=== PATIENT | female | born 1980 | race Caucasian/White ===

== ENCOUNTER → 2020-06-08 12:46 | Outpatient (BNVA) | payer MEDICARE, MEDICAID, SELFPAY | PROVIDERS: PCP Nurse Practitioner; Referring Provider Nurse Practitioner; Visit Provider Nurse Practitioner Gerontology | DX: Q61.5 Medullary cystic kidney (principal); R39.15 Urgency of urination; N20.0 Calculus of kidney; R10.31 Right lower quadrant pain | CPT/HCPCS: 81003; 99203 ==

== ENCOUNTER 2020-06-16 04:16 | Outpatient (CLI) | payer MEDICARE, MEDICAID, SELFPAY ==
--- NOTE | 2020-06-16 07:15 | DI.CT_ITS ---
EXAM: CT ABDOMEN PELVIS WO/W CLINICAL HISTORY: flank pain with microhemATURIA,MEDULLARY SPONGE KIDNEY TECHNIQUE: Imaging Protocol: Axial computed tomography images with coronal and sagittal reformatted images were created and reviewed CONTRAST MATERIAL: Intravenous: Omnipaque 350 Contrast volume:100 mL Oral: No COMPARISON: CT CT ABD PELVIS W/O from 03/25/2016 FINDINGS: ABDOMEN: Lung Bases: Normal where visualized. Liver: Normal density. No measurable mass. Portal, Superior Mesenteric, and Splenic Veins: Unremarkable. Gallbladder and Biliary Tract: No radiodense calculus or dilation. Pancreas: Normal density, no abnormal calcifications or inflammatory process. Spleen: Normal. Adrenals: No masses seen. Kidneys: Normal size, contour and axis. Bilateral nephrolithiasis. No masses seen. Abdominal Aorta: Abdominal portion non-dilated. Bowel: No obstruction or bowel wall thickening. Appendix is unremarkable. Peritoneal Cavity: Trace amount of free fluid in the pelvis. Lymph Nodes: Within normal limits. Bones: Mild degenerative changes. Soft Tissues: Unremarkable. PELVIS: Bladder: Symmetric distention, no gross wall thickening. Reproductive Organs: Unremarkable as visualized. Lymph Nodes: Within normal limits. Bones: Mild degenerative changes. IMPRESSION: Bilateral nephrolithiasis. No evidence of hydronephrosis. RADIATION DOSE DELIVERED: 2,343.99mGy.cm Total DLP 2,343.99mGy.cm Total DLP DATA REPOSITORY: All CT scans at this facility are submitted to the National Radiology Data Registry (NRDR) Dose Index Registry (DIR) with the [employer] ([employer]). RADIATION OPTIMIZATION: All CT scans at this facility use at least one of these dose optimization te chniques: automated exposure control; mA and/or kV adjustment per patient size (includes targeted exa ms where dose is matched to clinical indication); or iterative reconstruction.
[2020-06-16] MEDS: Omnipaque 350 MG/ML 100 ML BTL IJ (11:33)
[2020-06-16] MEDS: Normal Saline - Diluent 50 ML VIAL IV (11:45)
== END 2020-06-16 04:36 ==
PROVIDERS: PCP Nurse Practitioner; Visit Provider Nurse Practitioner Gerontology
DX: N20.0 Calculus of kidney (principal); R31.29 Other microscopic hematuria; Q61.5 Medullary cystic kidney
CPT/HCPCS: 74178; J3490

== ENCOUNTER → 2020-06-20 10:32 | Outpatient (BNVA) | payer MEDICARE, MEDICAID, SELFPAY | PROVIDERS: PCP Nurse Practitioner; Referring Provider Nurse Practitioner; Visit Provider Nurse Practitioner Gerontology | DX: N20.0 Calculus of kidney (principal) | CPT/HCPCS: 99213 ==

== ENCOUNTER → 2020-08-10 08:35 | Outpatient (BNVA) | payer MEDICARE, MEDICAID, SELFPAY | PROVIDERS: PCP Nurse Practitioner; Referring Provider Nurse Practitioner; Visit Provider Nurse Practitioner Gerontology | DX: N20.0 Calculus of kidney (principal) | CPT/HCPCS: 99213; 99441 ==

== ENCOUNTER 2020-09-08 04:06 | Outpatient (CLI) | payer MEDICARE, MEDICAID, SELFPAY ==
--- NOTE | 2020-09-08 06:53 | DI.US_ITS ---
EXAM: US RENAL CLINICAL HISTORY: monitoring stones,KIDNEY STONES,N20.0. TECHNIQUE: Lara scale, color and spectral Doppler were used. COMPARISON: CT CT ABDOMEN PELVIS WO/W from 06/16/[address] ABDOMEN PELVIS WO/W from 06/16/2020 FINDINGS: Renal size in cm: Right: 11.2. Left: 12.7. Echogenicity: Normal. Hydronephrosis: No. Cyst or mass: No. Nephrolithiasis: 0.6 cm echogenic focus in the lower pole of the left kidney suggestive a nonobstruct ing stone. Other findings: None. Bladder:Normal. Ureteral jets: Right: Visualized and unremarkable. Left: Visualized and unremarkable. Prevoid vol:51 cc Postvoid vol:0 cc Renal color flow: Symmetric and within normal limits. IMPRESSION: Left nephrolithiasis. No hydronephrosis. DATA REPOSITORY: .
== END 2020-09-08 04:26 ==
PROVIDERS: PCP Nurse Practitioner; Visit Provider Nurse Practitioner Gerontology
DX: N20.0 Calculus of kidney (principal)
CPT/HCPCS: 76770

== ENCOUNTER 2020-09-18 02:04 | Outpatient (CLI) | payer MEDICARE, MEDICAID, SELFPAY ==
[2020-09-19 12:36] LABS: COVID-19 RT-PCR UVMMC Result Negative (Negative)
== END 2020-09-18 02:24 ==
PROVIDERS: PCP Nurse Practitioner; Visit Provider Urology
DX: Z11.52 Encounter for screening for COVID-19 (principal)
CPT/HCPCS: U0003

== ENCOUNTER 2020-09-21 09:08 | Day surgery (SDC) | payer MEDICARE, MEDICAID, SELFPAY ==
[2020-09-21 09:15] VITALS: BP 128/83; PULSE 116; RESP 22; TEMP 36.6; O2SAT 96
== END 2020-09-21 09:28 ==
PROVIDERS: PCP Nurse Practitioner; Visit Provider Urology
DX: Z53.9 Procedure and treatment not carried out, unspecified reason (principal)

== ENCOUNTER 2020-09-25 04:27 | Outpatient (CLI) | payer MEDICARE, MEDICAID, SELFPAY ==
[2020-09-26 14:37] LABS: COVID-19 RT-PCR UVMMC Result Negative (Negative)
== END 2020-09-25 04:47 ==
PROVIDERS: PCP Nurse Practitioner; Visit Provider Urology
DX: Z11.52 Encounter for screening for COVID-19 (principal)
CPT/HCPCS: U0003

== ENCOUNTER 2020-09-28 06:20 | Day surgery (SDC) | payer MEDICARE, MEDICAID, SELFPAY ==
[2020-09-28 06:25] VITALS: BP 124/91; PULSE 100; RESP 18; TEMP 36.8; O2SAT 95
--- NOTE | 2020-09-28 06:44 | W.PM.HP.N ---
Date of service: 09/28/20 Time of Service: 06:44 Assessment and Plan Assessment and plan (1) Medullary sponge kidney: Status: Acute Assessment and plan: We will do cystoscopy and bilateral retrograde pyelogram. As long as no stone is documented on the right, we will proceed with a left-sided flexible ureteroscopy and possible holmium laser lithotripsy of her stones. (2) Kidney stones: Status: Chronic (3) Chronic pain disorder: Status: Acute History of Present Illness History of Present Illness Chief Complaint: Left renal Stones Narrative: This is a 39-year-old woman who has a history of medullary sponge kidney. She previously underwent bilateral flexible ureteroscopy with stone extraction at our facility in 2016. She has chronic pain issues and has been complaining of a change in her chronic bilateral flank pain. She was evaluated with a CT scan and renal ultrasound. The CT demonstrated nonobstructing left kidney stones. Ultrasound confirmed the absence of hydronephrosis. She presents for ureteroscopy with stone manipulation. Review of Systems Narrative: No fevers or chills No vision change or dysphasia No diabetes or thyroid No shortness of breath, cough or hemoptysis No chest pain or palpitations No nausea, vomiting, hepatitis, ulcers, jaundice, diarrhea or constipation No seizures, strokes or peripheral neuropathy No bleeding disorders or anemia No gout or arthralgia [facility] Medical History Asthma Chronic fatigue syndrome Controlled substance agreement broken Depression Fibromyalgia GERD (gastroesophageal reflux disease) Irritable bowel syndrome Migraines Nephrolithiasis Ovarian cyst PTSD (post-traumatic stress disorder) Surgical History H/O discectomy History of hysterectomy History of lithotripsy Status post laser lithotripsy of ureteral calculus Social History Smoking/Tobacco Use Status: Former Tobacco Use Quit Date: 09/01/18 Smoking risk assessment performed?: Yes Alcohol Intake: never Drug use: Daily Substance use type: marijuana Do you feel safe at home: Yes Do you feel safe in your relationship?: Yes Meds Home Medications and Allergies Home Medications Medication Instructions Recorded Confirmed Type albuterol sulfate [Proair Hfa] 8.5 g INHALATION PRN PRN inhaler 04/05/16 09/28/20 History omeprazole 40 mg capsule,delayed 40 mg PO DAILY 05/22/20 09/28/20 History release potassium citrate 10 mEq (1,080 10 meq PO TID 05/22/20 09/28/20 History mg) tablet,extended release quetiapine 300 mg tablet 600 mg PO HS tab 05/22/20 09/28/20 History tizanidine 4 mg capsule 4 mg PO TID PRN 05/22/20 09/28/20 History venlafaxine 150 mg 150 mg PO DAILY 05/22/20 09/28/20 History capsule,extended release 24 hr clonazepam 0.5 mg PO PRN PRN 09/27/20 09/28/20 History Allergies Allergy/AdvReac Type Severity Reaction Status Date / Time naproxen [From Naprosyn] Allergy Severe GI Bleeding Unverified 09/28/20 06:32 citalopram Allergy unknown Unverified 09/28/20 06:32 rizatriptan benzoate Allergy unknown Unverified 09/28/20 06:32 [From Maxalt] sertraline Allergy unknown Unverified 09/28/20 06:32 tapentadol HCl [From Nucynta] Allergy unknown Unverified 09/28/20 06:32 tramadol Allergy unknown Unverified 09/28/20 06:32 bupropion HCl AdvReac Severe makes me Unverified 09/28/20 06:32 [From Wellbutrin] manic carbamazepine AdvReac Intermediate low bp Unverified 09/28/20 06:32 Exam Const General: cooperative and anxious Neck Neck: supple Resp Effort & Inspection: normal respiratory effort Auscultation: clear to auscultation bilaterally Cardio Rate: regular rate Rhythm: regular rhythm GI Palpation: soft and no masses Neuro General: patient alert, patient awake and patient oriented x3 Results Last Vital Signs Temp 36.8 C 09/28/20 06:25 Pulse 100 H 09/28/20 06:25 Resp 18 09/28/20 06:25 BP 124/91 H 09/28/20 06:25 Pulse Ox 95 09/28/20 06:25 COVID-19 Screening Have you, or household traveled for leisure in last 14 days?: No Had IN PERSON contact w/suspected or confirmed C-19 person: No
[2020-09-28] MEDS: Lactated Ringers 1,000 ML 80 ML IV (06:52)
[2020-09-28] MEDS: ceFAZolin 1 GM/50 ML BAG IVPB (07:51)
[2020-09-28] MEDS: Lidocaine 2% Jelly 6 ML SYR (07:56)
[2020-09-28] MEDS: Omnipaque 300 MG/ML 50 ML BTL (08:14)
--- NOTE | 2020-09-28 08:20 | DI.RAD_ITS ---
EXAM: XR RETROGRADE IN OR CLINICAL HISTORY: left renal stones. TECHNIQUE: 2D digital imaging was performed. COMPARISON: No exams were available for comparison FINDINGS: Crust provided during urologic procedure bilateral retrograde injections evident. Images reveal a wi re extending up the left ureter to the renal pelvis level. There is no hydronephrosis nor hydrourete r evident on either side. Total fluoroscopy time 40.8 seconds; cumulative dose 7.48 mGy IMPRESSION: DATA REPOSITORY: RADIATION DOSE DELIVERED:
--- NOTE | 2020-09-28 08:22 | W.PM.DSUDISC ---
Discharge Plan Disposition Patient Disposition: HOME Condition: Stable Discharge Details Attending Provider: Kedar Foster Primary Care Provider: Chris Iniguez Home Meds and New Rx's Prescriptions: New ketorolac 10 mg tablet 10 mg PO Q6H PRN5 Days Qty: 20 RF: 0 oxycodone 5 mg capsule 5 mg PO Q6H PRN (Reason: pain) Qty: 10 RF: 0 No Action albuterol sulfate [ProAir HFA] 8.5 GM HFA aerosol inhaler 8.5 g Inhalation PRN PRNRF: 0 potassium citrate [Urocit-K 10] 10 mEq (1,080 mg) tablet extended release 10 meq PO TID RF: 0 tizanidine 4 mg capsule 4 mg PO TID PRNRF: 0 venlafaxine 150 mg capsule,extended release 24hr 150 mg PO DAILY RF: 0 quetiapine [Seroquel] 300 mg tablet 600 mg PO HS RF: 0 omeprazole 40 mg capsule,delayed release(DR/EC) 40 mg PO DAILY RF: 0 clonazepam 0.5 mg tablet 0.5 mg PO PRN PRNRF: 0 Discharge Instructions Additional Instructions: no need to strain urine Followup 4 to 6 weeks with renal ultrasound on same day Activity:: Activity as Tolerated Shower/Bathe:: 24 hours Diet:: As Tolerated Discharge Orders Discharge Orders: Discharge Order (Routine); Ordered 09/28/20 Ordered By: Kedar Foster DS: Diagnosis Discharge Diagnosis (1) Medullary sponge kidney: Status: Acute (2) Kidney stones: Status: Chronic (3) Chronic pain disorder: Status: Acute
[2020-09-28 08:25] VITALS: BP 111/76; PULSE 67; RESP 11; TEMP 35.3; O2SAT 99
[2020-09-28 08:30] VITALS: BP 93/70; PULSE 69; RESP 11; TEMP 35.3; O2SAT 99
[2020-09-28 08:35] VITALS: BP 100/68; PULSE 93; RESP 13; TEMP 35.3; O2SAT 99
[2020-09-28] MEDS: Phenazopyridine 200 MG TAB PO (08:55)
--- NOTE | 2020-09-28 08:56 | W.PM.OP ---
Date of service: 09/28/20 Time of Service: 08:57 Operative Note Operative Note DATE OF PROCEDURE: 09/28/20 PRE-OP DIAGNOSIS: Left kidney stones POST-OP DIAGNOSIS: same PROCEDURE: Cystoscopy, bilateral retrograde pyelogram, left flexible ureteroscopy with extraction of multiple stones. SURGEON: Kedar Foster ANESTHESIA: other (General without intubation) ESTIMATED BLOOD LOSS: 3 PATHOLOGY: other (stone for chemical analysis) COMPLICATIONS: None Patient was transported to: PACU Patient's condition: stable Indications: This is a 39-year-old woman who has a history of medullary sponge kidney. She has had multiple kidney stones treated with ESWL or ureteroscopy in the past. She currently has left-sided nonobstructing stones based on CT and ultrasound. She is having some right flank discomfort as well. She presents for cystoscopy with bilateral retrograde pyelograms and possible ureteroscopy. Findings: Total of 3 stones in the left kidney Normal-appearing right retrograde pyelogram Procedure Description: The patient was brought to the operating room on 09/28/2020. After successful induction of general anesthesia, she is placed in the dorsal lithotomy position. Her genitalia is prepped and draped. She was given preoperative IV antibiotics. 2% Xylocaine jelly was instilled into the urethra to act as a local anesthetic. A 22 [place] rigid cystoscope was passed through the urethra into the bladder. The bladder was inspected with a 30 degree lens. Both ureteral orifices were identified. They appeared normal in configuration and location. No blood was seen coming from either side. Each ureteral orifice was cannulated using a 6 [place] access catheter. Retrograde films were obtained by injecting Omnipaque through the access catheter under fluoroscopic guidance. The right ureter and collecting system appeared normal. The right side drained promptly with no delay. No filling defects were identified. On the left side, filling defects were seen in the lower pole calyx. This finding corresponds to the CT scan findings. A Glidewire was advanced up the left ureter and the scope and access catheter were removed. A dual-lumen catheter was then advanced over the wire and a second wire was positioned. We chose one of the wires as a working wire and the other is a safety wire. The ureteral access sheath was advanced over the working wire. The wire was then removed. The flexible ureteroscope was advanced through the ureteral access sheath. Each of the calyces was inspected based on the retrograde pyelogram mapping. The stone was seen in the one of the left midpole calyces the stone was grasped in a ZeroTip stone basket and removed. 2 additional stones were seen in one of the lower pole calyces. Again, each of these stones were grasped in a ZeroTip stone basket and removed. No additional stones were seen. I saw no evidence of ureteral injury, so we elected not to place a ureteral stent. All 3 stones were sent to pathology for chemical analysis. She tolerated this procedure well with no complications. She was sent to the recovery room in stable condition.
[2020-10-03 13:30] LABS: Source: Left Kidney
== END 2020-09-28 09:57 | disposition home or self-care (01) ==
PROVIDERS: PCP Nurse Practitioner; Visit Provider Urology
PROC: (CPT 52352; principal; 2020-09-28 07:30)
DX: N20.0 Calculus of kidney (principal); Q61.5 Medullary cystic kidney; Z87.442 Personal history of urinary calculi; K21.9 Gastro-esophageal reflux disease without esophagitis
CPT/HCPCS: 52352; NC; 74420; 82365; J0690; J1100; J1885; J2001; J2405; J2704; Q9967

== ENCOUNTER 2021-01-01 01:07 | Outpatient (CLI) | payer MEDICARE, MEDICAID, SELFPAY ==
--- NOTE | 2021-01-01 | DI.US_ITS ---
Exam(s) US RENAL EXAM: US RENAL CLINICAL HISTORY: ? HYDRONEPHROSIS AFTER URETEROSCOPY,KIDNEY STONES,N20.0. TECHNIQUE: Lara scale, color and spectral Doppler were used. COMPARISON: US US RENAL from 09/08/2020 FINDINGS: Renal size in cm: Right: 9.4. Left: 10.5. Echogenicity: Normal. Hydronephrosis: No. Cyst or mass: No. Nephrolithiasis: There is a 4.3 mm echogenic focus in the lower pole of the left kidney suspicious fo r nonobstructing stone. Other findings: None. Bladder:The bladder is incompletely distended limiting evaluation. Ureteral jets: Right: Visualized and unremarkable. Left: Visualized and unremarkable. Prevoid vol:49 cc Postvoid vol:0 cc Renal color flow: Symmetric and within normal limits. IMPRESSION: 1. No evidence of hydronephrosis. 2. Left nephrolithiasis. DATA REPOSITORY:
== END 2021-01-01 01:27 ==
PROVIDERS: PCP Nurse Practitioner; Visit Provider Urology
DX: N20.0 Calculus of kidney (principal); Q61.5 Medullary cystic kidney; Z87.440 Personal history of urinary (tract) infections
CPT/HCPCS: 76770; 99213; 99214

== ENCOUNTER 2021-07-09 00:23 | Outpatient (CLI) | payer MEDICARE, MEDICAID, SELFPAY ==
--- NOTE | 2021-07-09 06:45 | DI.US_ITS ---
Exam(s) US RENAL EXAM: US RENAL CLINICAL HISTORY: monitor known stones,medullary sponge kidney,calculus of kidney. TECHNIQUE: Lara scale, color and spectral Doppler were used. COMPARISON: US US RENAL from 01/01/2021 FINDINGS: Renal size in cm: Right: 10.4. Left: 11.2. Echogenicity: Normal. Hydronephrosis: No. Cyst or mass: No. Nephrolithiasis: 4 mm nonobstructing stone in the inferior pole. Other findings: None. Bladder:Normal. Ureteral jets: Right: Visualized and unremarkable. Left: Visualized and unremarkable. Prevoid vol:74 cc Postvoid vol:The patient did not feel the need to void. Renal color flow: Symmetric and within normal limits. IMPRESSION: Left nephrolithiasis. No hydronephrosis. DATA REPOSITORY:
== END 2021-07-09 00:43 ==
PROVIDERS: PCP Nurse Practitioner; Visit Provider Urology
DX: N20.0 Calculus of kidney (principal); Q61.5 Medullary cystic kidney
CPT/HCPCS: 76770

== ENCOUNTER 2022-08-21 00:54 | Outpatient (CLI) | payer MEDICARE, MEDICAID, SELFPAY ==
--- NOTE | 2022-08-21 06:30 | DI.US_ITS ---
Exam(s) US RENAL EXAM: US RENAL CLINICAL HISTORY: kidney stones,N20.0 TECHNIQUE: Ultrasound of both kidneys performed using standard protocol. COMPARISON: US US RENAL from 07/09/2021 FINDINGS: RIGHT KIDNEY: Measures 10.1 cm in length. No cysts evident. Normal cortical thickness and corticomedullary differen tiation .No solid masses No intrarenal calculi nor hydronephrosis. LEFT KIDNEY: Measures 11.5 cm in length. No cysts evident. Normal cortical thickness and corticomedullary differe ntiaion. No solids masses. There is a small hyperechoic focus towards the lower pole which may be a nonobstructive calculus measuring approximately 5 millimeters. URINARY BLADDER: Prevoid volume is 318 cc Postvoid volume is 0 cc No evidence of bladder mass nor diverticuli. Ureterovesical jets: The ureterovesical jet was identified. The right was not identified. IMPRESSION: 1. No significant ultrasound findings in the right kidney. 2. 5 millimeter hyperechoic focus in the left kidney which is probably a nonobstructive calculus. N o hydronephrosis. 3. No obvious focal findings in the urinary bladder. However, the right ureterovesical jet was not identified. There is, however, no hydronephrosis on the right side. DATA REPOSITORY:
== END 2022-08-21 01:14 ==
LOC: DI 00:55
PROVIDERS: PCP Nurse Practitioner; Visit Provider Urology
DX: N20.0 Calculus of kidney (principal)
CPT/HCPCS: 76770; 99214

== ENCOUNTER 2023-02-19 01:37 | Outpatient (CLI) | payer OTHER, MEDICAID, SELFPAY ==
--- NOTE | 2023-02-19 07:15 | DI.US_ITS ---
Exam(s) US RENAL EXAM: US RENAL CLINICAL HISTORY: monitoring stone burden, MEDULLARY SPONGE KIDNEY, Q61.5, N20.0. TECHNIQUE: Lara scale, color and spectral Doppler were used. COMPARISON: US US RENAL from 08/21/2022 FINDINGS: Renal size in cm: Right: 9.9. Left: 11.1. Echogenicity: Normal. Hydronephrosis: No. Cyst or mass: No. Nephrolithiasis: There is a 7 mm echogenic focus in the inferior pole of the left kidney which may re present a nonobstructing stone. Other findings: None. Bladder:Normal. Ureteral jets: Right: Visualized and unremarkable. Left: Visualized and unremarkable. Prevoid vol:77 cc Postvoid vol:5 cc Renal color flow: Symmetric and within normal limits. IMPRESSION: Left nephrolithiasis. No hydronephrosis. DATA REPOSITORY:
== END 2023-02-19 01:57 ==
LOC: DI 01:38
PROVIDERS: PCP Nurse Practitioner; Visit Provider Nurse Practitioner Gerontology
DX: N20.0 Calculus of kidney (principal); Q61.5 Medullary cystic kidney
CPT/HCPCS: 76770

== ENCOUNTER → 2023-06-19 13:55 | Outpatient (BNVA) | payer OTHER, MEDICAID, SELFPAY | PROVIDERS: PCP Nurse Practitioner; Referring Provider Nurse Practitioner; Visit Provider Nurse Practitioner Gerontology | DX: Q61.5 Medullary cystic kidney (principal); N20.0 Calculus of kidney; Z87.440 Personal history of urinary (tract) infections | CPT/HCPCS: 81003; 99213 ==

== ENCOUNTER → 2023-08-27 00:51 | Outpatient (CLI) | payer OTHER, MEDICAID, SELFPAY ==
--- NOTE | 2023-08-27 07:00 | DI.US_ITS ---
Exam(s) US RENAL EXAM: US RENAL CLINICAL HISTORY: monitoring left renal calculi,KIDNEY STONES,MEDULLARY KIDNEY,N20.0,q61.5. TECHNIQUE: Lara scale, color and spectral Doppler were used. COMPARISON: CT CT ABDOMEN PELVIS WO/W from 06/16/2020 US US RENAL from 08/21/2022 US US RENAL from 02/19/2023 FINDINGS: Renal size in cm: Right: 10.3 left: 11.5 Echogenicity: Normal Hydronephrosis: No Cyst or mass: No Nephrolithiasis: 5 millimeter stone mid left kidney. 7 millimeter stone lower pole left kidney. No right renal calculi. Bladder:Normal. Prevoid vol: 150 cc Postvoid vol:0 cc IMPRESSION: Left nephrolithiasis. DATA REPOSITORY:
== END ==
PROVIDERS: PCP Nurse Practitioner; Visit Provider Nurse Practitioner Gerontology
DX: N20.0 Calculus of kidney (principal); Q61.5 Medullary cystic kidney
CPT/HCPCS: 76770

== ENCOUNTER 2023-08-27 10:38 | Outpatient (REF) | payer OTHER, MEDICAID, SELFPAY | END 2023-08-27 10:39 | disposition home or self-care (01) | LOC: LBN 10:38 | PROVIDERS: PCP Nurse Practitioner; Visit Provider Nurse Practitioner Gerontology | DX: R30.0 Dysuria (principal); R10.9 Unspecified abdominal pain | CPT/HCPCS: 87086 ==

== ENCOUNTER 2023-09-18 08:06 | Day surgery (SDC) | payer OTHER, SELFPAY ==
[2023-09-18] VITALS (10 sets, daily range): BP systolic 91–128; BP diastolic 49–94; PULSE 48–67; RESP 14–20; TEMP 36.3–36.7; O2SAT 99–100; BMI 25.2
[2023-09-18] MEDS: Lactated Ringers 1,000 ML 80 ML IV (09:00)
--- NOTE | 2023-09-18 09:15 | DI.RAD_ITS ---
Exam(s) XR FLOURO OR C-ARM <1 HR EXAM: XR FLOURO OR C-ARM <1 HR CLINICAL HISTORY: Kidney stones. TECHNIQUE: Fluoroscopy was provided for the referring physician for guidance with performing pain cl inic injection procedure. COMPARISON: No exams were available for comparison FINDINGS: Os could be was provided for Dr. Foster for guidance with performing retrograde procedure. Please see procedure note for details. Fluoro time: 28 seconds RADIATION DOSE DELIVERED: devorah Shelton=4.11 mGy
--- NOTE | 2023-09-18 09:16 | HPE_ITS ---
Date of service: 09/18/23 Time of Service: 09:38 Assessment and Plan Assessment and plan (1) Kidney stones: Status: Chronic (2) Medullary sponge kidney: Status: Acute Assessment and plan: We will go ahead with cystoscopy, left retrograde pyelogram and left-sided holmium laser lithotripsy of her previously identified kidney stones (midpole and lower pole). History of Present Illness History of Present Illness Chief Complaint: Left kidney stones Narrative: This is a 42-year-old woman who has a history of of medullary sponge kidney. She has calcium based kidney stones (both calcium oxalate and calcium phosphate components). We have been monitoring known stones on the left side and her stone burden seems to have increased recently. She is not having renal colic or ureteral obstruction, but she is elected did to have stone manipulation at this point in order to avoid future episodes of renal colic. Review of Systems Narrative: No fevers or chills No vision change or dysphasia No diabetes or thyroid dysfunction No shortness of breath, cough or hemoptysis No chest pain or palpitations No nausea, vomiting, hepatitis, ulcers, jaundice No seizures, strokes or peripheral neuropathy No bleeding disorders or anemia Chronic pain with fibromyalgia. No gout PFSH All Active Problems Kidney stones (Chronic) Medullary sponge kidney (Acute 04/05/16) History of urinary retention (Acute 04/05/16) Chronic pain disorder (Acute 04/05/16) Medical History Controlled substance agreement broken Nephrolithiasis PTSD (post-traumatic stress disorder) pt. states no potential triggers at this time Depression GERD (gastroesophageal reflux disease) Asthma Ovarian cyst Migraines Irritable bowel syndrome Chronic fatigue syndrome Fibromyalgia Surgical History H/O discectomy Status post laser lithotripsy of ureteral calculus History of lithotripsy History of hysterectomy Social History Smoking/Tobacco Use Status: Former Tobacco Use Quit Date: 09/01/18 Smoking risk assessment performed?: Yes Alcohol Intake: never Drug use: Daily Substance use type: marijuana Details: t-1 Housing: apartment Do you feel safe at home: Yes Do you feel safe in your relationship?: Yes Additional Social history: Lives alone (with 17 year old son) Meds Allergies and Home Medications Allergies Allergy/AdvReac Type Severity Reaction Status Date / Time naproxen [From Naprosyn] Allergy Severe GI Bleeding Unverified 09/18/23 08:17 citalopram Allergy unknown Unverified 09/18/23 08:17 rizatriptan benzoate Allergy unknown Unverified 09/18/23 08:17 [From Maxalt] sertraline Allergy unknown Unverified 09/18/23 08:17 tapentadol HCl [From Nucynta] Allergy unknown Unverified 09/18/23 08:17 tramadol Allergy unknown Unverified 09/18/23 08:17 bupropion HCl AdvReac Severe makes me Unverified 09/18/23 08:17 [From Wellbutrin] manic carbamazepine AdvReac Intermediate low bp Unverified 09/18/23 08:17 Home Medications Medication Instructions Recorded Confirmed Type albuterol sulfate 90 mcg/actuation 8.5 g inhalation PRN PRN 04/05/16 09/18/23 History aerosol inhaler (ProAir HFA) aripiprazole 10 mg tablet (Abilify) 10 mg PO DAILY 08/21/22 09/18/23 History hydroxyzine HCl 50 mg tablet 50 mg PO QID PRN 08/21/22 09/18/23 History pregabalin 200 mg capsule (Lyrica) 200 mg PO TID 02/19/23 09/18/23 History Exam Const General: cooperative Neck Neck: supple Resp Effort & Inspection: normal respiratory effort Auscultation: clear to auscultation bilaterally Cardio Rate: regular rate Rhythm: regular rhythm GI Palpation: soft and no masses Neuro General: patient alert, patient awake and patient oriented x3 Results Labs Labs: RUN DATE: 09/18/23 [facility] PAGE 1 RUN TIME: [id number] RUN USER: [place] [address] Madeline Baez MD,PhD PATIENT REPORT PATIENT: Karen Ortega LOC: [facility] U #: [id number] /SX: [id number] F ROOM: RE09/28/[address]: LETI ALCOCERFORT SILL STATUS: [place] [facility] [place] DIS: SPEC #: [id number] KENZIE: 09/28/20 STATUS: COMP REQ #: [id number] RECD: 09/28/[address]: SACHIN LANDEROS MD ENTERED: 09/28/20 [facility] DR: VAL CHIRINOS FAX #: ORDERED: Stone Anaylsis QUERIES: Source: Left Kidney Test Result Flag Reference Verified Kidney Stone Analysis Source: Left Kidney 10/03/20 Interpretation See Comment 10/03/20 90% Calcium phosphate (apatite) 10% Calcium oxalate dihydrate Test Performed by: [facility] [address] [place] [address] Bottom Bleacher: Derrek Jj M.D. Ph.D.; CLIA# [id number] Patient: Karen Ortega LABORATORY Acct#[id number] Unit#[id number] Last Vital Signs Temp 36.7 C 09/18/23 08:21 Pulse 63 09/18/23 08:21 Resp 16 09/18/23 08:21 BP 95/56 L 09/18/23 08:38 Pulse Ox 99 09/18/23 08:21 Time Spent Time spent with Patient: <40 minutes Time was spent: other
--- NOTE | 2023-09-18 09:21 | W.ANESPRE ---
General Info Date of Service Date Performed: 09/18/23 Height: 5 ft 5 in Weight: 68.8 kg Body Mass Index (BMI): 25.2 Surgical Procedure: Operation Date: 09/18/23 09:55 Proposed Procedure Side Surgeon p Cystoscopy/Retrograde/Ureteroscopy/Renal Calculi Manipulation Left Kedar Foster MD Meds Allergies and Home Medications Allergies Allergy/AdvReac Type Severity Reaction Status Date / Time naproxen [From Naprosyn] Allergy Severe GI Bleeding Unverified 09/18/23 08:17 citalopram Allergy unknown Unverified 09/18/23 08:17 rizatriptan benzoate Allergy unknown Unverified 09/18/23 08:17 [From Maxalt] sertraline Allergy unknown Unverified 09/18/23 08:17 tapentadol HCl [From Nucynta] Allergy unknown Unverified 09/18/23 08:17 tramadol Allergy unknown Unverified 09/18/23 08:17 bupropion HCl AdvReac Severe makes me Unverified 09/18/23 08:17 [From Wellbutrin] manic carbamazepine AdvReac Intermediate low bp Unverified 09/18/23 08:17 Home Medication Medication Instructions Recorded albuterol sulfate 90 mcg/actuation 8.5 g inhalation PRN PRN 04/05/16 aerosol inhaler (ProAir HFA) aripiprazole 10 mg tablet (Abilify) 10 mg PO DAILY 08/21/22 hydroxyzine HCl 50 mg tablet 50 mg PO QID PRN 08/21/22 pregabalin 200 mg capsule (Lyrica) 200 mg PO TID 02/19/23 Current Visit Medications: Current Medications Generic Name Dose Route Start Last Admin Trade Name Freq PRN Reason Stop Dose Admin Ringer's Solution 1,000 mls @ 80 mls/hr 09/18/23 06:00 09/18/23 09:00 IV 09/18/23 23:59 80 mls/hr INFUSION ROE Administration Cefazolin Sodium/Dextrose 2 gm in 50 mls @ 100 mls/hr 09/18/23 06:00 Ancef Duplex IVPB 09/18/23 23:59 PREOP ROE IV Miscellaneous Supplies 1 each 09/18/23 06:00 Iv Access IV 09/18/23 23:59 DIRECTED ROE Sodium Chloride 0 ml 09/18/23 06:00 Normal Saline Flush 10 Ml Syr IV 09/18/23 23:59 PRN PRN Sodium Chloride 0 ml 09/18/23 06:00 Normal Saline 10 Ml Vial IJ 09/18/23 23:59 DIRECTED PRN Sterile Water 0 ml 09/18/23 06:00 Water,Injection,Sterile 10 Ml Vial IJ 09/18/23 23:59 DIRECTED PRN PFSH Active Problems Active Problems: Problem Status Onset Code Kidney stones N20.0 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 states no potential triggers at this time Depression GERD (gastroesophageal reflux disease) Asthma Ovarian cyst Migraines Irritable bowel syndrome Chronic fatigue syndrome Fibromyalgia Medical History Comments:: Yanci daily t-1 Surgical History Surgical History H/O discectomy Status post laser lithotripsy of ureteral calculus History of lithotripsy History of hysterectomy Tobacco Smoking/Tobacco Use Status: Former Tobacco Use Alcohol Alcohol Intake: never Substance Use Substance use: Daily Substance use type: marijuana Details: t-1 Vital Signs and Lab Results Vital Signs Most Recent Vital Signs in EMR: Most Recent Vital Signs Temp Pulse Resp BP Pulse Ox 36.7 C 63 16 95/56 L 99 09/18/23 08:21 09/18/23 08:21 09/18/23 08:21 09/18/23 08:38 09/18/23 08:21 Lab Results Blood Type / Crossmatch: No Data to Display Complete Blood Count: No Data to Display Complete Metabolic Panel: No Data to Display Liver Function Panel: No Data to Display Coagulation Panel: No Data to Display Cardiac Panel: No Data to Display Arterial Blood Gas: No Data to Display Venous Blood Gas: No Data to Display Pancreas Panel: No Data to Display Thyroid Panel: No Data to Display Infectious Disease: No Data to Display Blood Cultures: No Data to Display Toxicology Panel: No Data to Display Panel: No Data to Display Anesthesia Assessment and Plan Anesthesia History Personal History: No History of Anesthesia Complications Family History: No Family History of Anesthesia Complications Exercise Tolerance Exercise Tolerance: Metabolic Equivalents>4 Pertinent Negatives Pertinent Negatives: No Symptoms of GERD, No Major Cardiovascular Symptoms or Complaints, No Major Pulmonary Symptoms or Complaints and No History of CVA/TIA (pt reports sz in the past no sz in 20mo per pt ) Cardiac & Pulmonary Exam Cardiac Exam: Normal S1/S2 Heart Sounds Pulmonary Exam: Clear Bilateral Breath Sounds Implantable Cardiac Device Does patient have a Pacemaker or an ICD?: No Airway Exam Known Difficult Airway: No Mallampati Class: 2 Mouth Opening: Normal (> 3cm) Thyromental Distance: Greater than 3 cm Neck Range of Motion: Full ROM Neck Circumference: Normal Teeth Condition: Normal Dentition and Removable Dentures/Plates Upper (pt removed preop ) ASA Classification ASA Score: ASA 2 Emergency Case?: No NPO Status NPO Status: NPO Clears >2 hours, Solids >8 hours Status Status: History of Hysterectomy Anesthesia Plan Resuscitation Status: Full Code Anesthesia Technique: General Anesthesia Airway Planned: Endotracheal Tube Monitors Used: Standard Monitors and SedLine
[2023-09-18] MEDS: Omnipaque 300 MG/ML 50 ML BTL (10:40)
[2023-09-18] MEDS: Lidocaine 2% Jelly 11 ML SYR (10:40)
--- NOTE | 2023-09-18 11:05 | W.PM.DSUDISC ---
Date of service: 09/18/23 Time of Service: 11:05 Discharge Plan Disposition Patient Disposition: Home Condition: Stable Discharge Details Reason For Visit: kidney stones Attending Provider: Kedar Foster Primary Care Provider: None,None Home Meds and New Rx's Prescriptions: New hydrocodone-acetaminophen 5-325 mg tablet 1 - 2 tab PO Q6H PRN (Reason: pain) Qty: 30 0RF Rx Instructions: do not take additional tylenol while on medication No Action aripiprazole [Abilify] 10 mg tablet 10 mg PO DAILY hydroxyzine HCl 50 mg tablet 50 mg PO QID PRN pregabalin [Lyrica] 200 mg capsule 200 mg PO TID albuterol sulfate [ProAir HFA] 8.5 GM HFA aerosol inhaler 8.5 g Inhalation PRN PRN Discharge Instructions Additional Instructions: no need to strain urine followup early next week for stent removal - tell my office there is a string on stent followup appt for renal US in office in 6 to 8 weeks Activity:: Activity as Tolerated Shower/Bathe:: 24 hours Diet:: As Tolerated Discharge Orders Discharge Orders: Discharge Order (Routine); Ordered 09/18/23 Ordered By: Kedar Foster DS: Diagnosis Discharge Diagnosis (1) Kidney stones: Status: Chronic (2) Medullary sponge kidney: Status: Acute
--- NOTE | 2023-09-18 11:12 | W.BRIEF ---
Date of service: 09/18/23 Time of Service: 11:12 Brief Operative Note Procedure/Pre & Post Op Diagnoses/Network Communications Engineer: Operation Date: 09/18/23 09:55 Actual Procedures p Cystoscopy/Retrograde/Ureteroscopy/Renal Calculi Manipulation(Left) - Kedar Foster MD Anesthesia Anesthesia Type: Local By Surgeon and General LMA/ETT 5 Specimen/Culture Specimen(s): 1. Left renal stone for chemical analysis Complications Complications: None
--- NOTE | 2023-09-18 11:13 | ROE_ITS ---
Date of service: 09/18/23 Time of Service: 11:14 Operative Note Operative Note DATE OF PROCEDURE: 09/18/23 PRE-OP DIAGNOSIS: left kidney stones POST-OP DIAGNOSIS: same PROCEDURE: cystoscopy, left retrograde pyelogram, left flexible ureteroscopy, holmium laser lithotripsy of stones, stone extraction, insert left ureteral stent SURGEON: Kedar Foster ANESTHESIA TYPE: Local By Surgeon and General LMA/ETT Refer to Anesthesia Record ESTIMATED BLOOD LOSS: 5 PATHOLOGY: other (stones for chemical analysis) COMPLICATIONS: None Patient was transported to: PACU Patient's condition: stable Implants: 4.8 Cymraes by 22 to 30 cm left ureteral stent Indications: This is a 42-year-old woman who has a history of medullary sponge kidneys. As a result, she forms multiple kidney stones predominantly on the left side. She is not currently symptomatic, but we have noticed that her stone burden has been increasing. She comes in for ureteroscopy and stone treatment in the hopes that she will not progress to renal colic symptoms. Findings: Multiple stones in the left mid and lower pole calyces Procedure Description: The patient was given preoperative antibiotics and brought to the operating room on 09/18/2023. After successful induction of general anesthesia, she was placed in the dorsal lithotomy position. Her genitalia was prepped and draped. 2% Xylocaine jelly was instilled into the urethra to act as a local anesthetic. A 22 Cymraes rigid cystoscope was passed through the urethra into the bladder. The bladder was inspected with the 30 degree lens. Both ureteral orifices were normal in appearance. No blood was seen coming from either side. The remainder of the bladder showed no papillary or nodular lesions. The left ureteral orifice was cannulated with a 5 Cymraes access catheter. A ret rograde pyelogram was performed and we were able to outline the different calluses. The retrograde was performed by injecting Omnipaque through the access catheter under fluoroscopic guidance. We then passed a guidewire through the lumen of the access catheter and removed the catheter. We passed a dual-lumen catheter over the wire and a second wire was positioned. We chose one of the wires as a working wire and the other as a safety wire. I then passed a ureteral access sheath over the working wire. We position the sheath so that the end of the sheath was in the upper ureter. I passed the flexible ureteroscope through the lumen of the access sheath and inspected each of the calyces. Multiple stones were seen in the midpole calyces. The stones were small enough that I was able to grasp them in a 0 tip stone basket and remove them in their entirety. In the lower pole calyces, again we identified multiple stones. In this case, we utilized the 272 ?m holmium laser fiber to fragment the stones. We used dusting settings of 0.5 and a rate of 20. The stones fragmented very very nicely. I was able to grasped some of these fragments in a 0 tip stone basket and remove them as well. At the completion of the procedure, there were no large stone fragments remaining. We removed the ureteroscope and the ureteral access sheath. I passed a 4.8 Cymraes variable length stent over the safety wire. We position the stent with the proximal end curled in the renal pelvis and the distal end curled in the bladder. We left the safety string attached and brought the string through the patient's urethra. The string was tucked into the patient's vagina so that we would be able to remove her stent in about 3 to 5 days. The patient tolerated this procedure well with no complications.
[2023-09-18] MEDS: fentaNYL 100 MCG/2 ML VIAL IVP (11:49)
[2023-09-18] MEDS: HYDROcodone 5/Acetaminophen 325 TAB PO (12:34)
[2023-09-18] MEDS: Phenazopyridine 200 MG TAB PO (12:34)
--- NOTE | 2023-09-18 13:50 | W.ANESPOSTOP ---
Postoperative Evaluation Date, Time and Location Date Performed: 09/18/23 Time Performed: 13:20 Patient Location: Day Surgery Unit Vital Signs Most Recent Imported Vital Signs: Most Recent Vital Signs Temp Pulse Resp BP Pulse Ox 36.5 C 67 16 106/58 L 99 09/18/23 13:05 09/18/23 13:05 09/18/23 13:05 09/18/23 13:05 09/18/23 13:05 Pain Score Most Recent Pain Score: Most Recent Pain Score Pain Level 4 09/18/23 13:05 Assessment Mental Status: Awake (Alert & Oriented to Patient Baseline) Airway and Respiratory Function: Patent airway with normal (patient baseline) respiratory exam Cardiovascular Function: Hemodynamically Stable Hydration Status: Adequately Hydrated Nausea & Vomiting: No Nausea or Vomiting Pain: Pt. Denies Any Pain Peripheral Nerve Block: Patient did not receive a nerve block
== END 2023-09-18 13:20 | disposition home or self-care (01) ==
PROVIDERS: Visit Provider Urology
PROC: (CPT 52356; principal; 2023-09-18 09:45)
DX: N20.0 Calculus of kidney (principal); Q61.5 Medullary cystic kidney; K21.9 Gastro-esophageal reflux disease without esophagitis; J45.909 Unspecified asthma, uncomplicated; M79.7 Fibromyalgia
CPT/HCPCS: 52356; 76000; 82365; J0131; J1100; J1885; J2250; J2405; J2704; J3010; J3475; Q9967

== ENCOUNTER → 2023-09-23 07:50 | Outpatient (BNVA) | payer OTHER, SELFPAY | PROVIDERS: Visit Provider Nurse Practitioner Gerontology | DX: Q61.5 Medullary cystic kidney (principal); N20.0 Calculus of kidney ==

== ENCOUNTER → 2023-11-04 13:47 | Outpatient (BNVA) | payer OTHER, SELFPAY | PROVIDERS: Visit Provider Urology | DX: N20.0 Calculus of kidney (principal); Q61.5 Medullary cystic kidney | CPT/HCPCS: 76775 ==

== ENCOUNTER 2024-05-04 01:22 | Outpatient (CLI) | payer OTHER, SELFPAY ==
--- NOTE | 2024-05-04 08:00 | DI.US_ITS ---
Exam(s) US RENAL EXAM: US RENAL CLINICAL HISTORY: monitor known kidney stones,medullary sponge kidney,q61.5,n20.0. TECHNIQUE: Lara scale, color and spectral Doppler were used. COMPARISON: US US RENAL from 08/27/2023 FINDINGS: Renal size in cm: Right: 10.5. Left: 11.3. Echogenicity: Normal. Hydronephrosis: No. Cyst or mass: No. Nephrolithiasis: No. Other findings: None. Bladder:Normal. Ureteral jets: Right: Visualized and unremarkable. Left: Visualized and unremarkable. Prevoid vol:138 cc Postvoid vol:0 cc Renal color flow: Symmetric and within normal limits. IMPRESSION: No evidence of nephrolithiasis or hydronephrosis. DATA REPOSITORY:
== END 2024-05-04 01:42 ==
LOC: DI 01:22
PROVIDERS: Visit Provider Urology
DX: Q61.5 Medullary cystic kidney (principal)
CPT/HCPCS: 76770

== ENCOUNTER 2024-12-22 13:59 | Outpatient (REF) | payer MEDICARE, SELFPAY ==
[2024-12-22 13:37] LABS: Bilirubin Negative (Negative); Blood Negative (Negative); Clarity Clear (Clear); Glucose Negative (Negative); Ketones Negative (Negative); Leukocyte Esterase Negative (Negative); Nitrite Negative (Negative); Urobilinogen 0.2 mg/dL (Up to 0.2)
== END 2024-12-22 14:00 | disposition home or self-care (01) ==
LOC: LBN 13:59
PROVIDERS: Visit Provider Urology
DX: N39.0 Urinary tract infection, site not specified (principal); R82.89 Other abnormal findings on cytological and histological examination of urine
CPT/HCPCS: 81003; 87086